=== PATIENT | female | born 1955 | race Caucasian/White ===

== ENCOUNTER 2021-02-07 15:41 | Inpatient (IN) ==
[2021-02-07] MEDS ORDERED: Ondansetron 4 MG/2 ML VIAL IVP ONE (15:49)
[2021-02-07] MEDS: 0.9 % Sodium Chloride 1,000 ML IVC SCH ×3 (16:12→20:07)
[2021-02-07 16:15] LABS: Hematocrit 43.5 % (35.3-44.9); Hemoglobin 12.6 g/dL (11.5-15.4); Mean Corpuscular Hemoglobin 29.3 pg (28.0-33.3); Mean Corpuscular Volume 101.2 fL (83.0-100.0); Platelet Count 857 K/mcL (140-400); Red Cell Distribution Width 13.5 % (11.5-14.5)
[2021-02-07] MEDS ORDERED: 0.9 % Sodium Chloride 1,000 ML IVC ONE ×2 (16:19→20:03)
[2021-02-07 16:21] LABS: VBG HCO3 4 mEq/L (21-27); VBG PCO2 22 mmHg (41-51); VBG PH 6.89 pH Units (7.32-7.42); VBG PO2 62 mmHg (25-50)
[2021-02-07 16:29] LABS: Burr Cells 2+ (Not Present); Lymphocytes # 3.7 K/mcL (0.6-4.6); Monocytes # 2.2 K/mcL (0.0-1.3); Neutrophils # 31.1 K/mcL (1.6-8.9); Platelet Estimate Increased (Normal); Poikilocytosis 2+ (Not Present)
[2021-02-07 16:34] LABS: Troponin I < 0.03 ng/mL (< 0.04)
[2021-02-07] MEDS ORDERED: *HR* Dextrose 50 % in Water (Syg) 50 ML SYRINGE IVP PRN (16:46)
[2021-02-07 16:49] LABS: BUN/Creatinine Ratio 27 (6-26); Blood Urea Nitrogen 40 mg/dL (8-23); Calcium 9.6 mg/dL (8.6-10.3); Carbon Dioxide 4 mEq/L (23-29); Chloride 90 mEq/L (98-107); Glucose 961 mg/dL (70-105); Osmolality,Calculated 320 (280-300); Potassium 5.5 mEq/L (3.5-5.1); Sodium 126 mEq/L (136-145); eGFR For African Americans 43 (> 60); eGFR For Non-African Americans 36 (> 60)
[2021-02-07 17:32] LABS: Bilirubin,Urine Negative (Negative); Blood,Urine Moderate (Negative); Clarity,Urine Clear (Clear); Color,Urine Yellow (Yellow); Glucose,Urine (UA) >=1000 mg/dL (Normal); Ketones,Urine >=160 mg/dL (Negative); Leukocyte Esterase,Urine Negative (Negative); Nitrite,Urine Negative (Negative); Protein,Urine Trace mg/dL (Neg-Trace); Specific Gravity,Urine 1.015 (1.010-1.025); Urobilinogen,Urine Normal (Normal)
[2021-02-07 17:39] LABS: Bacteria,Urine Few per hpf (None-Few); RBC,Urine 0-3 per hpf (0-3)
[2021-02-07 19:41] LABS: ABG Base Excess -20 mEq/L (-2 to 3); ABG HCO3 7 mEq/L (21-27); ABG Oxygen Saturation 94 % (95-98); ABG PCO2 19 mmHg (35-45); ABG PH 7.16 pH Units (7.32-7.45); ABG PO2 87 mmHg (85-104); ABG TCO2 7 mEq/L (20-26)
[2021-02-07 20:11] LABS: BUN/Creatinine Ratio 33 (6-26); Blood Urea Nitrogen 36 mg/dL (8-23); Calcium 8.4 mg/dL (8.6-10.3); Carbon Dioxide 5 mEq/L (23-29); Chloride 105 mEq/L (98-107); Glucose 545 mg/dL (70-105); Osmolality,Calculated 317 (280-300); Potassium 5.3 mEq/L (3.5-5.1); Sodium 137 mEq/L (136-145); eGFR For African Americans > 60 (> 60); eGFR For Non-African Americans 51 (> 60)
[2021-02-07 22:56] LABS: BUN/Creatinine Ratio 32 (6-26); Blood Urea Nitrogen 33 mg/dL (8-23); Calcium 8.5 mg/dL (8.6-10.3); Carbon Dioxide 8 mEq/L (23-29); Chloride 109 mEq/L (98-107); Glucose 379 mg/dL (70-105); Osmolality,Calculated 315 (280-300); Potassium 4.8 mEq/L (3.5-5.1); Sodium 141 mEq/L (136-145); eGFR For African Americans > 60 (> 60); eGFR For Non-African Americans 55 (> 60)
[2021-02-08] MEDS: D5% in 0.45% NACL 1,000 ML IVC SCH ×3 (01:34→15:58)
[2021-02-08 02:30] LABS: BUN/Creatinine Ratio 33 (6-26); Blood Urea Nitrogen 28 mg/dL (8-23); Calcium 8.3 mg/dL (8.6-10.3); Carbon Dioxide 14 mEq/L (23-29); Chloride 113 mEq/L (98-107); Glucose 217 mg/dL (70-105); Osmolality,Calculated 302 (280-300); Potassium 4.3 mEq/L (3.5-5.1); Sodium 140 mEq/L (136-145); eGFR For African Americans > 60 (> 60); eGFR For Non-African Americans > 60 (> 60)
[2021-02-08] MEDS ORDERED: Piperacillin/Tazobactam 3.375 GM in Water for inj. (sterile) 20 ML IVP ONE (03:25)
[2021-02-08 04:09] LABS: Hematocrit 32.3 % (35.3-44.9); Hemoglobin 10.7 g/dL (11.5-15.4); Mean Corpuscular HGB Conc 33.1 g/dL (31.6-35.5); Mean Corpuscular Hemoglobin 28.9 pg (28.0-33.3); Mean Corpuscular Volume 87.3 fL (83.0-100.0); Mean Platelet Volume 8.7 fL (9.4-12.4); Platelet Count 523 K/mcL (140-400); Red Cell Distribution Width 13.1 % (11.5-14.5); White Blood Count 17.2 K/mcL (4.3-11.1)
[2021-02-08 04:36] LABS: Neutrophils # 15.1 K/mcL (1.6-8.9); Platelet Estimate Increased (Normal)
[2021-02-08 04:37] LABS: Anisocytosis 1+ (Not Present); Poikilocytosis 1+ (Not Present)
[2021-02-08 04:49] LABS: BUN/Creatinine Ratio 33 (6-26); Blood Urea Nitrogen 27 mg/dL (8-23); Calcium 8.6 mg/dL (8.6-10.3); Carbon Dioxide 22 mEq/L (23-29); Chloride 110 mEq/L (98-107); Glucose 207 mg/dL (70-105); Osmolality,Calculated 305 (280-300); Potassium 4.1 mEq/L (3.5-5.1); Sodium 142 mEq/L (136-145); eGFR For African Americans > 60 (> 60); eGFR For Non-African Americans > 60 (> 60)
[2021-02-08 10:42] LABS: ABG Base Excess -3 mEq/L (-2 to 3); ABG HCO3 21 mEq/L (21-27); ABG Oxygen Saturation 94 % (95-98); ABG PCO2 32 mmHg (35-45); ABG PH 7.43 pH Units (7.32-7.45); ABG PO2 68 mmHg (85-104); ABG TCO2 22 mEq/L (20-26)
[2021-02-08 11:15] LABS: BUN/Creatinine Ratio 32 (6-26); Blood Urea Nitrogen 24 mg/dL (8-23); Calcium 8.4 mg/dL (8.6-10.3); Carbon Dioxide 25 mEq/L (23-29); Chloride 113 mEq/L (98-107); Glucose 146 mg/dL (70-105); Osmolality,Calculated 305 (280-300); Potassium 3.7 mEq/L (3.5-5.1); Sodium 144 mEq/L (136-145); eGFR For African Americans > 60 (> 60); eGFR For Non-African Americans > 60 (> 60)
[2021-02-08] MEDS ORDERED: *HR* Dextrose 50 % in Water (Syg) 50 ML SYRINGE IVP PRN ×3 (11:55→20:06)
[2021-02-08] MEDS ORDERED: Dextrose Gel 15 GM/37.5 ML TUBE PO PRN ×6 (11:55→20:06)
[2021-02-08] MEDS ORDERED: D5% in Water 1,000 ML IVC PRN ×3 (11:55→20:06)
[2021-02-08] MEDS ORDERED: Acetaminophen 325 MG TABLET PO PRN ×2 (11:58→20:06)
[2021-02-08] MEDS ORDERED: Insulin LISPRO 300 UNITS/3 ML VIAL SUBQ SCH ×4 (12:00→21:00)
[2021-02-08] MEDS ORDERED: Levalbuterol 1 PUFF INHALER IH SCH (12:00)
[2021-02-08] MEDS ORDERED: Ringers Solution, Lactated 1,000 ML IVC SCH ×2 (12:15→20:06)
[2021-02-08] MEDS ORDERED: levoFLOXacin 750 MG/150 ML 750 MG/150 ML BAG IVPB SCH (12:30)
[2021-02-08] MEDS ORDERED: Ipratropium 1 PUFF INHALER IH SCH (16:00)
[2021-02-08] MEDS ORDERED: Piperacillin/Tazobactam 3.375 GM in 0.9 % Sodium Chloride Mini Bag 100 ML IVPB SCH (20:06)
[2021-02-08] MEDS ORDERED: D5% in 0.45% NACL 1,000 ML IVC SCH (20:06)
[2021-02-08] MEDS ORDERED: Naloxone 0.4 MG/ML INJ IVP PRN (20:06)
[2021-02-08] MEDS ORDERED: Ondansetron 4 MG/2 ML VIAL IVP PRN (20:06)
[2021-02-09] MEDS: Ipratropium 1 PUFF INHALER IH SCH ×3 (00:10→10:31)
[2021-02-09] MEDS: Levalbuterol 1 PUFF INHALER IH SCH ×3 (00:10→10:31)
[2021-02-09] MEDS ORDERED: *HR* Enoxaparin 40 MG/0.4 ML SYRINGE SQ SCH ×2 (06:00)
[2021-02-09] MEDS ORDERED: Isovue-370 500 ML BOTTLE ONE (09:00)
[2021-02-09 09:23] LABS: Basophils % 0.2 %; Eosinophils % 0.2 %; Hematocrit 30.7 % (35.3-44.9); Hemoglobin 10.7 g/dL (11.5-15.4); Immature Granulocytes % 0.8 % (0-4); Mean Corpuscular HGB Conc 34.9 g/dL (31.6-35.5); Mean Corpuscular Hemoglobin 29.6 pg (28.0-33.3); Mean Platelet Volume 9.1 fL (9.4-12.4); Monocytes # 0.5 K/mcL (0.0-1.3); Monocytes % 5.4 %; Neutrophils # 6.9 K/mcL (1.6-8.9); Platelet Count 353 K/mcL (140-400); Red Blood Count 3.61 M/mcL (3.82-4.97); Red Cell Distribution Width 13.4 % (11.5-14.5); Segmented Neutrophils % 81.4 %; White Blood Count 8.5 K/mcL (4.3-11.1)
[2021-02-09] MEDS: levoFLOXacin 750 MG/150 ML 750 MG/150 ML BAG IVPB SCH (09:47)
[2021-02-09] MEDS: Insulin LISPRO 300 UNITS/3 ML VIAL SUBQ SCH ×4 (09:49→22:19)
[2021-02-09 10:05] LABS: Albumin 2.8 g/dL (3.5-5.7); Albumin/Globulin Ratio 1.3 (1.1-2.2); Bilirubin,Direct 0.2 mg/dL (0.0-0.2); Bilirubin,Indirect 0.5 mg/dL (0.0-1.0); Bilirubin,Total 0.7 mg/dL (0.3-1.0); Globulin 2.2 g/dL (2.4-3.5)
[2021-02-09] MEDS ORDERED: Levalbuterol 1 PUFF INHALER IH PRN (10:33)
[2021-02-09] MEDS ORDERED: Ipratropium 1 PUFF INHALER IH PRN (10:33)
[2021-02-09 10:50] LABS: BUN/Creatinine Ratio 32 (6-26); Blood Urea Nitrogen 23 mg/dL (8-23); Calcium 8.3 mg/dL (8.6-10.3); Carbon Dioxide 18 mEq/L (23-29); Chloride 105 mEq/L (98-107); Glucose 420 mg/dL (70-105); Osmolality,Calculated 310 (280-300); Potassium 3.8 mEq/L (3.5-5.1); Sodium 139 mEq/L (136-145); eGFR For African Americans > 60 (> 60); eGFR For Non-African Americans > 60 (> 60)
[2021-02-09] MEDS ORDERED: Isovue-370 500 ML BOTTLE IVP ONE (14:05)
[2021-02-09] MEDS ORDERED: D5% in Water 1,000 ML IVC PRN (14:48)
[2021-02-09] MEDS ORDERED: *HR* Dextrose 50 % in Water (Syg) 50 ML SYRINGE IVP PRN (14:48)
[2021-02-09] MEDS ORDERED: Dextrose Gel 15 GM/37.5 ML TUBE PO PRN ×2 (14:48)
[2021-02-09] MEDS ORDERED: Sodium Bicarbonate 50 MEQ/50 ML VIAL IVP ONE (14:49)
[2021-02-09] MEDS ORDERED: *HR* Heparin 5,000 UNIT/ML VIAL IVP PRN ×2 (16:46)
[2021-02-09] MEDS ORDERED: *HR* Heparin 5,000 UNIT/ML VIAL IVP ONE (16:46)
[2021-02-09 18:08] LABS: Hematocrit 31.2 % (35.3-44.9); Hemoglobin 10.9 g/dL (11.5-15.4); Mean Corpuscular HGB Conc 34.9 g/dL (31.6-35.5); Mean Platelet Volume 8.5 fL (9.4-12.4); Platelet Count 318 K/mcL (140-400); Red Blood Count 3.76 M/mcL (3.82-4.97); Red Cell Distribution Width 13.2 % (11.5-14.5); White Blood Count 7.5 K/mcL (4.3-11.1)
[2021-02-09 18:16] LABS: Heparin anti-factor XA UFH 0.09 IU/mL (0.30-0.70)
[2021-02-09 18:17] LABS: INR 1.2; Prothrombin Time 14.1 Seconds (9.4-12.1)
[2021-02-09 18:27] LABS: BUN/Creatinine Ratio 29 (6-26); Blood Urea Nitrogen 17 mg/dL (8-23); Calcium 8.3 mg/dL (8.6-10.3); Carbon Dioxide 30 mEq/L (23-29); Chloride 107 mEq/L (98-107); Glucose 111 mg/dL (70-105); Osmolality,Calculated 298 (280-300); Potassium 3.5 mEq/L (3.5-5.1); Sodium 143 mEq/L (136-145); eGFR For African Americans > 60 (> 60); eGFR For Non-African Americans > 60 (> 60)
[2021-02-09] MEDS: Heparin 25,000UNIT/250ML 1/2NS 25,000 UNIT/250 ML IV.SOLN IVC SCH (18:33)
[2021-02-09] MEDS: Insulin DETEMIR 100 UNIT/ML X5UNITS SUBQ SCH (22:19)
[2021-02-10 00:34] LABS: Basophils % 0.3 %; Eosinophils % 0.6 %; Hematocrit 32.8 % (35.3-44.9); Hemoglobin 11.2 g/dL (11.5-15.4); Immature Granulocytes % 0.4 % (0-4); Lymphocytes # 1.3 K/mcL (0.6-4.6); Lymphocytes % 19.1 %; Mean Corpuscular HGB Conc 34.1 g/dL (31.6-35.5); Mean Corpuscular Hemoglobin 28.9 pg (28.0-33.3); Mean Corpuscular Volume 84.5 fL (83.0-100.0); Mean Platelet Volume 8.6 fL (9.4-12.4); Monocytes # 0.4 K/mcL (0.0-1.3); Monocytes % 6.5 %; Neutrophils # 4.9 K/mcL (1.6-8.9); Platelet Count 285 K/mcL (140-400); Red Blood Count 3.88 M/mcL (3.82-4.97); Red Cell Distribution Width 13.4 % (11.5-14.5); Segmented Neutrophils % 73.1 %; White Blood Count 6.7 K/mcL (4.3-11.1)
[2021-02-10 00:53] LABS: Alanine Aminotransferase 20 Units/L (7-52); Albumin 2.8 g/dL (3.5-5.7); Albumin/Globulin Ratio 1.3 (1.1-2.2); Alkaline Phosphatase 58 Units/L (34-104); Aspartate Amino Transferase 22 Units/L (13-39); BUN/Creatinine Ratio 26 (6-26); Bilirubin,Total 0.8 mg/dL (0.3-1.0); Blood Urea Nitrogen 16 mg/dL (8-23); Calcium 8.2 mg/dL (8.6-10.3); Carbon Dioxide 29 mEq/L (23-29); Chloride 105 mEq/L (98-107); Globulin 2.2 g/dL (2.4-3.5); Glucose 241 mg/dL (70-105); Osmolality,Calculated 301 (280-300); Potassium 3.2 mEq/L (3.5-5.1); Sodium 141 mEq/L (136-145); eGFR For African Americans > 60 (> 60); eGFR For Non-African Americans > 60 (> 60)
[2021-02-10] MEDS ORDERED: Potassium Chloride Elixir 20 MEQ/15 ML UDC PO ONE (09:37)
[2021-02-10] MEDS: levoFLOXacin 750 MG/150 ML 750 MG/150 ML BAG IVPB SCH (09:56)
[2021-02-10] MEDS: Insulin LISPRO 300 UNITS/3 ML VIAL SUBQ SCH ×4 (09:58→20:22)
[2021-02-10] MEDS: Heparin 25,000UNIT/250ML 1/2NS 25,000 UNIT/250 ML IV.SOLN IVC SCH (17:55)
[2021-02-10] MEDS: Apixaban 5 MG TABLET PO SCH (19:16)
[2021-02-10] MEDS: Insulin DETEMIR 100 UNIT/ML X5UNITS SUBQ SCH (20:33)
[2021-02-11 07:29] VITALS: BP 140/90; PULSE 88; RESP 18; TEMP 98.1
[2021-02-11] MEDS: Insulin LISPRO 300 UNITS/3 ML VIAL SUBQ SCH (08:06)
[2021-02-11 08:09] LABS: Basophils % 0.4 %; Eosinophils % 0.2 %; Hematocrit 33.4 % (35.3-44.9); Hemoglobin 11.2 g/dL (11.5-15.4); Immature Granulocytes % 0.4 % (0-4); Mean Corpuscular HGB Conc 33.5 g/dL (31.6-35.5); Mean Corpuscular Hemoglobin 29.1 pg (28.0-33.3); Mean Corpuscular Volume 86.8 fL (83.0-100.0); Monocytes # 0.3 K/mcL (0.0-1.3); Monocytes % 7.3 %; Neutrophils # 3.3 K/mcL (1.6-8.9); Platelet Count 250 K/mcL (140-400); Red Blood Count 3.85 M/mcL (3.82-4.97); Red Cell Distribution Width 13.1 % (11.5-14.5); Segmented Neutrophils % 70.7 %; White Blood Count 4.7 K/mcL (4.3-11.1)
[2021-02-11] MEDS: Apixaban 5 MG TABLET PO SCH (08:09)
[2021-02-11] MEDS: levoFLOXacin 750 MG/150 ML 750 MG/150 ML BAG IVPB SCH (08:09)
[2021-02-11 08:32] LABS: BUN/Creatinine Ratio 20 (6-26); Blood Urea Nitrogen 11 mg/dL (8-23); Calcium 8.2 mg/dL (8.6-10.3); Carbon Dioxide 33 mEq/L (23-29); Chloride 103 mEq/L (98-107); Glucose 75 mg/dL (70-105); Osmolality,Calculated 290 (280-300); Potassium 3.3 mEq/L (3.5-5.1); Sodium 141 mEq/L (136-145); eGFR For African Americans > 60 (> 60); eGFR For Non-African Americans > 60 (> 60)
[2021-02-11] MEDS ORDERED: Potassium Chloride Elixir 20 MEQ/15 ML UDC PO ONE (09:49)
[2021-02-11 10:09] VITALS: O2SAT 96
== END 2021-02-11 11:31 | disposition home or self-care (01) | DRG 177 ==
LOC: EMEROOPIK 15:41 → INPPIK 15:41
PROVIDERS: ADMIT Internal Medicine; ATTEND Internal Medicine